=== PATIENT | male | born 1940 | race Caucasian/White ===

== ENCOUNTER 2023-03-20 05:36 | Emergency (ER) | payer OTHER ==
[~2023-03-20] VITALS: Ht 172.7 cm; Wt 68.2 kg
[2023-03-20] MEDS ORDERED: KETOROLAC 60MG 2ML VIAL IM ONE (06:25)
[2023-03-20] MEDS ORDERED: LIDOCAINE 5% (LIDODERM) PATCH TD ONE (06:25)
[2023-03-20] MEDS ORDERED: B-12100010 PO (07:26)
[2023-03-20] MEDS ORDERED: DOCU100C16 PO (07:26)
[2023-03-20] MEDS ORDERED: LISI20TA33 PO (07:26)
[2023-03-20] MEDS ORDERED: FINA5TAB2 PO (07:26)
[2023-03-20] MEDS ORDERED: PANT40TA29 PO (07:26)
[2023-03-20] MEDS ORDERED: PRED20TA PO (07:26)
[2023-03-20] MEDS ORDERED: FLOM0.4C39 PO (07:26)
[2023-03-20] MEDS ORDERED: ACET-897 PO (07:26)
[2023-03-20] MEDS ORDERED: COQ150CH PO (07:26)
[2023-03-20] MEDS ORDERED: KRIL300C2 PO (07:26)
[2023-03-20] MEDS ORDERED: CIDA500T2 PO (07:26)
[2023-03-20] MEDS ORDERED: ASPI81CH33 PO (07:26)
[2023-03-20] MEDS ORDERED: ACET500P3 PO (07:26)
[2023-03-20] MEDS ORDERED: HYDR-3713 PO (08:36)
[2023-03-20] MEDS ORDERED: ASPE4PAD TOP (08:36)
[2023-03-20 08:43] VITALS: BP 149/67; TEMP 97.9; O2SAT 98
== END 2023-03-20 08:58 | disposition home or self-care (01) ==
LOC: M ED 05:36
DX: S32.19XA Other fracture of sacrum, initial encounter for closed fracture (principal); M53.3 Sacrococcygeal disorders, not elsewhere classified; M54.50 Low back pain, unspecified; I10 Essential (primary) hypertension
CPT/HCPCS: 72131; 81001; 96372; 99283; J1885